=== PATIENT | male | born 1965 | race African-American/Black ===

== ENCOUNTER 2017-06-01 07:43 | Emergency (ER) | payer SELFPAY ==
[~2017-06-01] VITALS: Ht 177.8 cm; Wt 100.0 kg
[2017-06-01 07:52] VITALS: BP 153/95
[2017-06-01] MEDS ORDERED: DOXYCYC MONO100 M2 PO (08:17)
[2017-06-01] MEDS ORDERED: MOTRIN400 MG PO (08:17)
[2017-06-01] MEDS ORDERED: GABAPENTIN100 MG PO (08:17)
[2017-06-01] MEDS ORDERED: ASPERCREME LIDOCA41 TD (08:20)
== END 2017-06-01 09:46 | disposition home or self-care (01) | DRG 556 ==
LOC: ED 07:43
DX: M25.562 Pain in left knee (principal); M25.531 Pain in right wrist; M25.561 Pain in right knee; M25.532 Pain in left wrist; R50.9 Fever, unspecified

== ENCOUNTER 2021-06-23 08:41 | Emergency (ER) | payer SELFPAY ==
[~2021-06-23] VITALS: Ht 177.8 cm; Wt 115.0 kg
[~2021-06-23 08:41] MED LIST: ASPERCREME LIDOCA41 TD; DOXYCYC MONO100 M2 PO; GABAPENTIN100 MG PO; MOTRIN400 MG PO
[2021-06-23 08:47] VITALS: BP 131/66
[2021-06-23 09:01] VITALS: BP 130/68
[2021-06-23 09:13] LABS: HEMOGLOBIN 14.1 g/dl (14.0-18.0); IMMATURE GRANULOCYTES 0.5 % (0.0-5.0); MEAN CELL VOLUME 83.7 fL CALC (80.0-100.0); MEAN CORPUSCULAR HGB 26.8 pG CALC (26.0-32.0); NEUT# 3.82 thou/uL (1.82-7.42); RED BLOOD COUNT 5.26 mill/uL (4.70-6.10)
[2021-06-23 09:14] LABS: URINE BILIRUBIN - DIPSTICK NEGATIVE (NEGATIVE); URINE BLOOD DIPSTICK MODERATE (NEGATIVE); URINE COLOR YELLOW; URINE GLUCOSE - DIPSTICK NEGATIVE (NEGATIVE); URINE KETONE NEGATIVE (NEGATIVE); URINE LEUK ESTERASE NEGATIVE (NEGATIVE); URINE PROTEIN - DIPSTICK NEGATIVE (NEG-TRACE); URINE SPECIFIC GRAVITY 1.015; URINE UROBILINOGEN - DIPSTICK 0.2 E.U./dL (0.2)
[2021-06-23 09:16] VITALS: BP 109/66
[2021-06-23 09:17] LABS: URINE NITRITE - DIPSTICK NEGATIVE (Negative)
[2021-06-23 09:24] LABS: URINE WBC 0-2 WBC/hpf (0-5)
[2021-06-23 09:26] LABS: ALBUMIN 4.2 g/dL (3.2-5.0); ALKALINE PHOSPHATASE 96 u/l (38-126); ANION GAP 11 (6-22 (CALC)); BUN 10 mg/dL (9-20); BUN/CREATININE RATIO 12 (12-20 (CALC)); CARBON DIOXIDE 25 mmol/l (22-30); CHLORIDE 106 mmol/l (95-108); CREATININE 0.8 mg/dL (0.7-1.3); GFR > 60 ML/MIN (>=60 (CALC)); GFR FOR AFR.AMER. > 60 ML/MIN (>=60 (CALC)); SGOT/AST 28 u/l (17-59); SODIUM 138 mmol/l (137-146); TOTAL PROTEIN 8.6 g/dL (6.3-8.2)
[2021-06-23 09:27] LABS: BILIRUBIN, TOTAL 0.6 mg/dL (0.0-1.4)
[2021-06-23] MEDS ORDERED: FLEXERIL5 M1 PO (10:20)
[2021-06-23] MEDS ORDERED: TORADOL PO (10:20)
[2021-06-23] MEDS ORDERED: ZPAK PO (10:20)
[2021-06-23 11:11] VITALS: BP 109/66
== END 2021-06-23 11:19 | disposition home or self-care (01) | DRG 392 ==
LOC: ED 08:41
PROVIDERS: Emergency Medicine
DX: R10.9 Unspecified abdominal pain (principal); R91.8 Other nonspecific abnormal finding of lung field; F17.200 Nicotine dependence, unspecified, uncomplicated

== ENCOUNTER 2021-07-01 11:56 | Emergency (ER) | payer SELFPAY ==
[2021-07-01] VITALS (11 sets, daily range): BP systolic 106–152; BP diastolic 47–95
[~2021-07-01] VITALS: Ht 177.8 cm; Wt 107.0 kg
[~2021-07-01 11:56] MED LIST changes: +FLEXERIL5 M1 PO; +TORADOL PO; +ZPAK PO
[2021-07-01] MEDS ORDERED: CYCLOBENZAPRINE10 MG PO (12:50)
[2021-07-01] MEDS ORDERED: TRAMADOL HYDROC50 M1 PO (12:50)
== END 2021-07-01 13:03 | disposition home or self-care (01) | DRG 552 ==
LOC: ED 11:56
DX: M54.50 Low back pain, unspecified (principal); F17.200 Nicotine dependence, unspecified, uncomplicated

== ENCOUNTER 2021-08-14 15:37 | Emergency (ER) | payer SELFPAY ==
[~2021-08-14] VITALS: Ht 177.8 cm; Wt 100.0 kg
[~2021-08-14 15:37] MED LIST changes: +CYCLOBENZAPRINE10 MG PO; +TRAMADOL HYDROC50 M1 PO
[2021-08-14 15:48] VITALS: BP 119/77
[2021-08-14 16:00] VITALS: BP 115/74
[2021-08-14 16:33] LABS: HEMATOCRIT 41.8 % (39.0-50.0); HEMOGLOBIN 13.5 g/dl (14.0-18.0); IMMATURE GRANULOCYTES 0.3 % (0.0-5.0); MEAN CELL VOLUME 82.9 fL CALC (80.0-100.0); MEAN CORPUSCULAR HGB 26.8 pG CALC (26.0-32.0); MEAN CORPUSCULAR HGB CONC 32.3 g/dL CAL (32.0-36.0); NEUT# 6.66 thou/uL (1.82-7.42); RED BLOOD COUNT 5.04 mill/uL (4.70-6.10); RED CELL DISTRI WIDTH 14.2 % (11.5-15.5)
[2021-08-14 16:46] VITALS: BP 106/89
[2021-08-14 16:51] LABS: ALBUMIN 3.7 g/dL (3.2-5.0); ALKALINE PHOSPHATASE 79 u/l (38-126); ANION GAP 8 (6-22 (CALC)); BUN 10 mg/dL (9-20); BUN/CREATININE RATIO 13 (12-20 (CALC)); CARBON DIOXIDE 29 mmol/l (22-30); CHLORIDE 106 mmol/l (95-108); CREATININE 0.8 mg/dL (0.7-1.3); GFR > 60 ML/MIN (>=60 (CALC)); GFR FOR AFR.AMER. > 60 ML/MIN (>=60 (CALC)); POTASSIUM 4.2 mmol/l (3.5-5.1); SGOT/AST 24 u/l (17-59); SODIUM 139 mmol/l (137-146); TOTAL PROTEIN 7.7 g/dL (6.3-8.2)
[2021-08-14 16:57] LABS: BILIRUBIN, TOTAL 0.3 mg/dL (0.0-1.4)
[2021-08-14 17:00] VITALS: BP 123/78
[2021-08-14] MEDS ORDERED: ZPAK PO (17:19)
[2021-08-14 17:30] VITALS: BP 131/77
== END 2021-08-14 17:52 | disposition home or self-care (01) | DRG 153 ==
LOC: ED 15:37
PROVIDERS: Family Medicine
DX: J06.9 Acute upper respiratory infection, unspecified (principal); F17.200 Nicotine dependence, unspecified, uncomplicated; Z20.822 Contact with and (suspected) exposure to COVID-19

== ENCOUNTER 2022-11-24 09:01 | Day surgery (SDC) | payer BC ==
[~2022-11-24] VITALS: Ht 177.8 cm; Wt 104.3 kg
[~2022-11-24 09:01] MED LIST changes: +NAPROXEN500 MG PO
[2022-11-24 10:45] VITALS: BP 121/69
== END 2022-11-24 10:28 | disposition home or self-care (01) | DRG 951 ==
LOC: ENDO 09:01
PROVIDERS: ATTEND Internal Medicine Gastroenterology
PROC: 0DBN8ZX Excision of Sigmoid Colon, Via Natural or Artificial Opening Endoscopic, Diagnostic (ICD-10-PCS; principal; 2022-11-24)
PROC: 0DB48ZX Excision of Esophagogastric Junction, Via Natural or Artificial Opening Endoscopic, Diagnostic (ICD-10-PCS; 2022-11-24)
PROC: 0DB78ZX Excision of Stomach, Pylorus, Via Natural or Artificial Opening Endoscopic, Diagnostic (ICD-10-PCS; 2022-11-24)
DX: Z12.11 Encounter for screening for malignant neoplasm of colon (principal); K50.10 Crohn's disease of large intestine without complications; K64.8 Other hemorrhoids; K29.50 Unspecified chronic gastritis without bleeding; K21.00 Gastro-esophageal reflux disease with esophagitis, without bleeding